=== PATIENT | female | born 1960 | race Caucasian/White ===

== ENCOUNTER 2018-11-15 01:08 | Emergency (ER) | payer MEDICAID, OTHER ==
[~2018-11-15] VITALS: Ht 167.6 cm; Wt 80.7 kg
[2018-11-15 01:35] VITALS: BP_SYST 145
== END 2018-11-15 02:27 | disposition left against medical advice (07) ==
LOC: SED 01:08
DX: M54.2 Cervicalgia (principal); R06.02 Shortness of breath; Z53.21 Procedure and treatment not carried out due to patient leaving prior to being seen by health care provider

== ENCOUNTER 2020-07-31 18:32 | Emergency (ER) | payer OTHER ==
[~2020-07-31] VITALS: Ht 165.1 cm; Wt 74.8 kg
[2020-07-31 18:40] VITALS: BP_SYST 130
--- NOTE | 2020-07-31 18:40 | NUR ---
PT TO CHAIR IN HALLWAY. NO ER BEDS CURRENTLY AVAILABLE.
--- NOTE | 2020-07-31 19:15 | NUR ---
DR. SLAUGHTER AT BEDSIDE TO ASSESS
--- NOTE | 2020-07-31 19:22 | NUR ---
PATIENT BIB BLS FROM HOME A&O X4 C/O SWELLING TO LEFT SIDE OF FACE. PATIENT WAS SEEN BY YESTERDAY AND WAS GIVEN PRESCRIPTION FOR AMPICILLIN. PATIENT DENIES DROOLING, DIFFICULTY SWALLOWING, FEVER, CHILLS, INJURY OR TRAUMA, SOB, OR TONGUE SWELLING.
[2020-07-31] MEDS ORDERED: ACET1TAB23 PO (20:15)
[2020-07-31 20:23] VITALS: BP_SYST 126
--- NOTE | 2020-07-31 20:23 | NUR ---
Patient given written and verbal discharge instructions and verbalizes understanding. ER MD discussed with patient the results and treatment provided. Patient in stable condition. ID arm band removed. Rx of TYLENOL WITH CODEINE #3 given. Patient educated on pain management and to follow up with PMD. Pain Scale 2/10. Opportunity for questions provided and answered. Medication side effect fact sheet provided.
== END 2020-07-31 20:23 | disposition home or self-care (01) ==
LOC: SED 18:32
DX: K12.30 Oral mucositis (ulcerative), unspecified (principal)
CPT/HCPCS: 99283

== ENCOUNTER 2022-12-06 21:14 | Emergency (ER) | payer MEDICAID, OTHER ==
[~2022-12-06] VITALS: Ht 165.1 cm; Wt 81.6 kg
[2022-12-06 21:40] VITALS: BP_SYST 158; PULSE 84; RESP 18; TEMP 98.3; O2SAT 98
[2022-12-06 22:26] LABS: BASOPHILS # (AUTO) 0.1 K/uL (0.0-0.2); BASOPHILS % (AUTO) 0.7 % (0.0-2.0); EOSINOPHILS # (AUTO) 0.2 K/uL (0.0-0.4); EOSINOPHILS % (AUTO) 2.2 % (0.0-4.0); HEMATOCRIT 40.5 % (36-48); HEMOGLOBIN 13.2 g/dL (12.0-16.0); LYMPHOCYTES # (AUTO) 2.4 K/uL (1.0-5.5); LYMPHOCYTES % (AUTO) 30.2 % (20.5-51.5); MEAN CORPUSCULAR HEMOGLOBIN 30 pg (27-31); MEAN CORPUSCULAR HGB CONC 33 % (32-36); MEAN CORPUSCULAR VOLUME 93 fL (79.0-98.0); MONOCYTES # (AUTO) 0.7 K/uL (0.0-1.0); NEUTROPHILS # (AUTO) 4.6 K/uL (1.8-7.7); NEUTROPHILS % (AUTO) 57.9 % (40.0-70.0); PLATELET COUNT (AUTO) 429 K/uL (130-430); RED BLOOD CELL COUNT(AUTO) 4.36 MIL/uL (4.2-6.2); RED CELL DISTRIBUTION WIDTH 13.6 % (9.0-15.0)
[2022-12-06 22:34] LABS: BILIRUBIN,URINE NEGATIVE (NEGATIVE); CLARITY/URINE SL CLOUDY (CLEAR); COLOR,URINE YELLOW (YELLOW); GLUCOSE,URINE NEGATIVE (NEGATIVE); KETONES,URINE NEGATIVE (NEGATIVE); LEUKOCYTE ESTERASE ,URINE NEGATIVE (NEGATIVE); NITRITE, URINE POSITIVE (NEGATIVE); PROTEIN URINE NEGATIVE (NEGATIVE); UROBILINOGEN,URINE 0.2 (0.2-1.0)
[2022-12-06 22:35] LABS: BLOOD, URINE TRACE (NEGATIVE)
[2022-12-06 22:38] LABS: ALBUMIN 3.6 g/dL (3.4-4.8); CREATININE 0.86 mg/dL (0.55-1.30); POTASSIUM 3.5 mmol/L (3.5-5.1); TOTAL BILIRUBIN 0.4 mg/dL (0.0-1.0); TOTAL PROTEIN, SERUM 7.5 g/dL (6.4-8.3)
[2022-12-06 22:43] LABS: CALCIUM 9.2 mg/dL (8.4-11.0)
[2022-12-06 22:43] LABS: BACTERIA,URINE MANY /HPF (None Seen); WBC,URINE 0-3 /HPF (0-3)
[2022-12-07] MEDS ORDERED: KETOROLAC TROMETHAMINE 60 MG/2 ML VIAL IM ONE (01:00)
[2022-12-07] MEDS ORDERED: IBUP-1969 PO (01:05)
[2022-12-07] MEDS ORDERED: CIPR500T5 PO (01:05)
[2022-12-07] MEDS ORDERED: TRAM50TA2 PO (01:05)
[2022-12-07 01:26] VITALS: BP_SYST 158; PULSE 84; RESP 18; TEMP 98.3; O2SAT 98
== END 2022-12-07 01:26 | disposition home or self-care (01) ==
LOC: SED 21:14
DX: N39.0 Urinary tract infection, site not specified (principal); R10.9 Unspecified abdominal pain; M54.50 Low back pain, unspecified; E78.5 Hyperlipidemia, unspecified; Z79.899 Other long term (current) drug therapy
CPT/HCPCS: 99285; 74176; 80053; 81001; 83690; 85025; 87086; 36415; 76376; 81000; 96372; 81015; J1885